=== PATIENT | female | born 1990 | race Caucasian/White ===

== ENCOUNTER → 2020-04-13 13:56 | Outpatient (BNVA) | payer OTHER, SELFPAY | PROVIDERS: Visit Provider Anesthesiology | DX: M79.18 Myalgia, other site (principal); M19.011 Primary osteoarthritis, right shoulder; M46.1 Sacroiliitis, not elsewhere classified | CPT/HCPCS: 20552 ==

== ENCOUNTER → 2020-08-13 16:28 | Outpatient (BNVA) | payer OTHER, SELFPAY | PROVIDERS: Visit Provider Anesthesiology | DX: M19.011 Primary osteoarthritis, right shoulder (principal); M46.1 Sacroiliitis, not elsewhere classified; M79.18 Myalgia, other site; Z79.899 Other long term (current) drug therapy | CPT/HCPCS: Q3014 ==

== ENCOUNTER → 2020-08-20 14:52 | Outpatient (BNVA) | payer OTHER, SELFPAY | PROVIDERS: PCP Physician Assistant Medical; Visit Provider Anesthesiology | DX: M19.011 Primary osteoarthritis, right shoulder (principal); M46.1 Sacroiliitis, not elsewhere classified; M79.18 Myalgia, other site; Z79.899 Other long term (current) drug therapy | CPT/HCPCS: 99212 ==

== ENCOUNTER → 2020-08-27 14:44 | Outpatient (BNVA) | payer OTHER, SELFPAY | PROVIDERS: PCP Physician Assistant Medical; Visit Provider Anesthesiology | DX: M19.011 Primary osteoarthritis, right shoulder (principal); M46.1 Sacroiliitis, not elsewhere classified; M79.18 Myalgia, other site | CPT/HCPCS: 20552; 99212; J3300 ==